=== PATIENT | male | born 2000 | race Caucasian/White ===

== ENCOUNTER 2025-06-30 09:44 | Outpatient (AMB) | payer OTHER, SELFPAY ==
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
[2025-06-30 09:50] VITALS: BP 120/90; PULSE 66; RESP 18; TEMP 36.1; O2SAT 97; BMI 28.4
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
--- OUTSIDE RECORDS SUMMARY | 2025-06-30 10:16 | XMS_ITS | Clinical Summary ---
Author Organization [facility] Address [address] [place] [address] Phone Care Team Providers Care Translational Specialist Name Role Phone Kate Woodall MD Primary Care Provider [phone] Allergies Active Allergy Reactions Criticality Noted Date Comments Food 08/16/2017 Apples and citrus fruit Penicillins Active Problems Problem Noted Date Diagnosed Date Acne vulgaris 04/24/2018 Overview (08/18/2018): Rx [facility]. Rx included minocycline 2018: Takes minocin 75 mg bid and Clindamycin lotion 1 percent bid when acne flares. Assessment & Plan (08/18/2018 8:39 AM EDT): Continue clindamycin lotion. Minocin 75 bid if flares Low back pain 04/24/2018 Overview (08/18/2018): Saw Dr Easton 2017, referred to PT. xrays normal. No longer a problem. 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 Saw Dr Diaz 2016. Also mild cholinergic urticaria, shower or cold water now resolved. Hyperlipidemia 12/11/2015 Overview (08/18/2018): Seen [facility] 2016: LABWORK: done 07/21/16, fasting, with no intercurrent illness shows total cholesterol 213, HDL 37, LDL 126 which is similar to previous at 122. Triglycerides 148. SUMMARY: Tacos is a 15-year-old male with mildly elevated LDL cholesterol. He likely has a genetic predisposition to elevated LDL cholesterol. However, it is not in the familial hypercholesterolemia range and would not warrant pharmacologic intervention at this point. We will continue to work on reinforcing lifestyle modifications. Assessment & Plan (08/18/2018 8:42 AM EDT): Plan Lipid panel Discussed heart healthy diet Immunizations Immunization Administration Dates Next Due DTaP 09/29/2004, 2,02/04/2001,12/12,2000 HPV Vaccine 9 Valent 08/17/2015 HPV, Quadrivalent 03/22/2015,01/17/2015 Hep A, ped/adol 11/07/2011,10/25/2010 Hep B, ped/adol 04/17/2001,2000,2000 Hib (PRP-T) 11/06/2001, 1,2000,10/08 IPV 09/29/2004, 1,2000,10/08 Influenza, injectable, trivalent 011,09/28/2008,10/28/2007,09/24 Influenza, injectable,tr valent, preservative free, pediatric 12/24/2012 MMR 09/29/2004,11/06/2001 Meningococcal Conj (Menactra) MCV4P 02/04/2017,1 01/08/2011 Pneumococcal, Unspecified 08/15/2001,,2000,10/08 Tdap 11/07/2011 Varicella 10/14/2009,08/05/2001 Family History Medical History Relation Name Comments Hyperlipidemia Maternal Grandfather Hyperlipidemia Maternal Grandmother Asthma Mother Asthma Sister Relation Name Status Comments Maternal Grandfather Maternal Grandmother Mother Alive migraines Sister Social History Tobacco Use Types Packs/Day Years Used Date Smoking Tobacco: Never Alcohol Use Standard Drinks/Week Comments No 0 (1 standard drink = 0.6 oz pur e alcohol) Hunger/Food Answer Date Recorded No 08/13/2020 Stable Housing Answer Date Recorded No 08/13/2020 Transportation Concerns Answer Date Rec orded No 08/13/2020 Hazards in Home Answer Date Recorded No 09/30/2020 Financing Utilities Answer Date Recorde d No 09/30/2020 Safety at Home Answer Date Recorded No 09/30/2020 Outside Support Answer Date Recorded No 09/30/2020 Understanding Health Concerns Answer Da te Recorded No 09/30/2020 Financing Health Concerns Answer Date R ecorded No 09/30/2020 Missing School or Work Answer Date Omer rded No 09/30/2020 Sex and Gender Information Value Date Recorded Sex Assigned at Not on file Legal Sex Male 4:07 AM EST Gender Identity Not on file Sexual Orientation Not on file Last Filed Vital Signs Vital Sign Reading Time Taken Comments Blood Pressure 126/76 08/18/2018 8:14 AM EDT Pulse 69 04/19/2016 12:00 AM EDT Temperature 36.5 C (97.7 F) 02/03/2018 3:16 PM EDT Respiratory Rate - - Oxygen Saturation 98% 04/19/2016 12:00 AM EDT Inhaled Oxygen Concentration - - Weight 69.9 kg (154 lb 3.2 oz) 08/18/2018 8:14 A M EDT Height 168.9 cm (5' 6.5 ) 08/18/2018 8:14 AM EDT Body Mass Index 24.52 08/18/2018 8:14 AM EDT Plan of Treatment Health Maintenance Due Date Last Done Comments DTaP,Tdap,and Td Vaccines (7 - Td or Tdap) 11/07/2021 11/07/2011, 09/29/2004, 02/10/2002, Additional history exists COVID-19 Vaccine ( season) 2024 Influenza Vaccines (#1) 2025 12/24/19 13, 11/07/2011, 09/28/2008, Additional history exists Hepatitis B Vaccines Completed 04/17/2001, 2000, 2000 Pneumococcal Vaccine Aged Out 08/15/2001, 08/15/2001, 02/04/2001, Additional history exists No longer eligible based on patient's age to complete this topic HIB Vaccines Completed 11/06/2001, 01/17, 2000, Additional history exists IPV Vaccines Completed 09/29/2004, 07/20, 2000, Additional history exists MMR Vaccines Completed 09/29/2004, 11/06/2001 Varicella Vaccines Completed 10/14/2009, 08/05/2001 Hepatitis A Vaccines Completed 11/07/2011, 10/25/20 10 HPV Vaccines Completed 08/17/2015, 05/0 03/2015, 01/17/2015 Meningococcal Vaccine Completed 02/04/2017, 011 Men B Vaccine Aged Out No longer radha christian based on patient's age to complete this topic Insurance [facility] NON PCC Care Teams Translational Specialist Relationship Specialty Start Date End Date Kate Woodall MD [address] [address] PCP - General 01/08/17
--- OUTSIDE RECORDS SUMMARY | 2025-06-30 10:16 | XMS_ITS | Clinical Summary ---
Author Organization [facility] Address [address] [place] [address] Care Team Providers Care Physical Therapy Aides Teacher Name Role Phone Patient, Has No Pcp Or Ref Primary Care Provider Unavailable Allergies No known active allergies Medications No known medications Social History Tobacco Use Types Packs/Day Years Used Date Smoking Tobacco: Never Assessed Sex and Gender Information Value Date Recorded Sex Assigned at Male 02/12/2025 2:37 PM EDT Legal Sex Male 2:11 PM EDT Gender Identity Male 02/12/2025 2:37 PM EDT Sexual Orientation Not on file Last Filed Vital Signs Vital Sign Reading Time Taken Comments Blood Pressure 148/84 02/12/2025 10:11 PM EDT Pulse 75 02/12/2025 10:11 PM EDT Temperature 36.6 C (97.8 F) 02/12/2025 10:11 PM EDT Respiratory Rate 16 02/12/2025 10:11 PM EDT Oxygen Saturation 98% 02/12/2025 10:11 PM EDT Inhaled Oxygen Concentration - - Weight - - Height - - Body Mass Index - - Plan of Treatment Health Maintenance Due Date Last Done Comments HIV Screening 2000 Hepatitis C Screening 2000 HPV Vaccines (3 - Male 2-dos e series) 07/20/2015 03/22/2015, 01/17/2015 COVID-19 Vaccine (2023-2 5 season) 2024 Alcohol/Substance Use Screening 11/18/2024 Depression Screening and Follow-Up 11/18/2024 Social Drivers of Health Patsy ual Screening 11/18/2024 Influenza Vaccine (#1) 2025 9, 12/24/2012, 11/07/2011, Additional history exists DTaP,Tdap,and Td Vaccines (8 - Td or Tdap) 05/04/2029 05/04/2019, 11/07/2011, 09/29/2004, Additional history exists RSV Vaccine (60+ years old a nd patients) (1 - 1-dose 75+ series) 2075 Pneumococcal Vaccine: Pediat danelle (0-5 Years) and At-Risk Patients (6-50 Years) Completed 08/15/2001, 02/04/2001, 2000, Additional history exists Varicella Vaccines Completed 06/05/2019, 0 05/04/2019, 10/14/2009, Additional history exists Hepatitis B Vaccines Completed 11/05/2019, 06/05/2019, 05/04/2019, Additional history exists Insurance on file Care Teams Physical Therapy Aides Teacher Relationship Specialty Start Date End Date Patient, Has No Pcp Or Ref DO NOT EDIT THIS RECORD VIA PROVIDER ON THE FLY PCP - General Vice President Of Talent Management 02/12/25
--- OUTSIDE RECORDS SUMMARY | 2025-06-30 10:16 | XMS_ITS | Clinical Summary ---
Author Organization [address] Address [address] [place] [address] Phone Care Team Providers Care Plastic Worker Name Role Phone No, Pcp (Do Not Change Name) Primary Care Provid er Unavailable Allergies No known active allergies Social History Tobacco Use Types Packs/Day Years Used Date Smoking Tobacco: Never Assessed Sex and Gender Information Value Date Recorded Sex Assigned at Not on file Legal Sex Male 6:35 PM EDT Gender Identity Not on file Sexual Orientation Not on file Last Filed Vital Signs Vital Sign Reading Time Taken Comments Blood Pressure 149/78 03/25/2025 7:11 PM EDT Pulse 73 03/25/2025 7:11 PM EDT Temperature 36.7 C (98 F) 03/25/2025 7:11 PM EDT Respiratory Rate 18 03/25/2025 7:11 PM EDT Oxygen Saturation 98% 03/25/2025 7:11 PM EDT Inhaled Oxygen Concentration - - Weight 78 kg (172 lb) 03/25/2025 7:11 PM EDT Height 170.2 cm (5' 7 ) 03/25/2025 7:11 PM EDT Body Mass Index 26.94 03/25/2025 7:11 PM EDT Plan of Treatment Health Maintenance Due Date Last Done Comments HIV screening 2013 Hepatitis C screening 2018 Covid-19 vaccine series ( season) 2024 12/27/2020 Influenza vaccine 07/19/2025 09/08/2019, , 11/07/2011, Additional history exists DTaP/TDaP Vaccines (8 - Td or Tdap) 05/04/2029 05/04/2019, 11/07/2011, 09/29/2004, Additional history exists Tetanus adult (Td q 10,TDAP once) 05/06/2029 05/06/2019, 05/04/2019, 11/07/2011, Additional history exists RSV Immunization (1 - 1-dose 75+ series) 2075 Pneumococcal Vaccine (2 - 49 years) Aged Out 08/15/2001, 02/04/2001, 2000, Additional history exists No longer eligible based on patient's age to complete this topic HIB Vaccines Completed 11/06/2001, 01/17, 2000, Additional history exists MMR Vaccines Completed 09/29/2004, 11/06/2001 Hepatitis A Vaccines Completed 11/07/2011, 10/25/20 10 HPV vaccine series Completed 08/17/2015, 0 03/22/2015, 01/17/2015 Meningococcal Vaccine Completed 05/04/2019 , 02/04/2017, 11/07/2011 IPV Vaccines Completed 06/05/2019, 09/18, 08/15/2001, Additional history exists Varicella Vaccines Completed 06/05/2019, 0 05/04/2019, 10/14/2009, Additional history exists Hepatitis B vaccine series Completed 11/05, 06/05/2019, 05/04/2019, Additional history exists Rotavirus Vaccines Aged Out No longer eligible based on patient's age to complete this [place] [address] [place] [id number] [employer] Care Teams Plastic Worker Relationship Specialty Start Date End Date No, Pcp (Do Not Change Name) PCP - General 03/25/25
--- OUTSIDE RECORDS SUMMARY | 2025-06-30 10:16 | XMS_ITS ---
Author Name [facility] Organization Unknown Encounters Encounter Type Encounter Reason Primary Diagnosis Location Date Emergency Sprain of ankle, unspecified site Sprain of ankle, unspecified site [facility] 03/25/2025 Care Team Organization Name Specialty Phone Email Start Date End Da korin [facility] 06/2025
== END 2025-06-30 10:36 | disposition home or self-care (01) ==
DX: Z76.89 Persons encountering health services in other specified circumstances (principal); S93.401D Sprain of unspecified ligament of right ankle, subsequent encounter; F41.9 Anxiety disorder, unspecified

== ENCOUNTER → 2025-06-30 09:44 | Outpatient (BNVA) | payer OTHER, SELFPAY | DX: Z76.89 Persons encountering health services in other specified circumstances (principal); S93.401D Sprain of unspecified ligament of right ankle, subsequent encounter; F41.9 Anxiety disorder, unspecified | CPT/HCPCS: 96127; 99202 ==

== ENCOUNTER 2025-08-23 09:59 | Outpatient (REF) | payer OTHER, SELFPAY ==
--- OUTSIDE RECORDS SUMMARY | 2025-08-23 11:45 | XMS_ITS | Clinical Summary ---
Author Organization [facility] Address [address] [place] [id number] Phone Care Team Providers Care Grade Tamper Name Role Phone Kate Woodall MD Primary Care Provider [phone] Allergies Active Allergy Reactions Criticality Noted Date Comments Food 08/16/2017 Apples and citrus fruit Penicillins Active Problems Problem Noted Date Diagnosed Date Acne vulgaris 04/24/2018 Overview (08/18/2018): Rx [facility]. Rx included minocycline 2018: Takes minocin [...] 11/07/2021 11/07/2011, 09/29/2004, 02/10/2002, Additional history exists Influenza Vaccines (#1) 2025 12/24/19 13, 11/07/2011, 09/28/2008, Additional history exists COVID-19 Vaccine () 07/19/2025 Hepatitis B Vaccines Completed 04/17/2001, 2000, 2000 [...] patient's age to complete this topic Insurance [facility] NON PCC Care Teams Grade Tamper Relationship Specialty Start Date End Date Kate Woodall MD [address] [id number] PCP - General 01/08/17
--- OUTSIDE RECORDS SUMMARY | 2025-08-23 11:45 | XMS_ITS | Encounter Summary ---
Author Organization [facility] Address [address] [place] [address] Phone Care Team Providers Care Maintenance Mechanic Supervisor Name Role Phone Kate Woodall MD Primary Care Provider [phone] Encounter Details Date Type Department Care Team ([facility] st Contact Info) Description 04/05/2017 Conversion Encounter [address] [address] Kate Woodall MD [address] [place] [phone] Social History Tobacco Use Types Packs/Day Years Used Date Smoking Tobacco: Never Assessed Sex and Gender Information Value Date Recorded Sex Assigned at Not on file Legal Sex Male 4:07 AM EST Gender Identity Not on file Sexual Orientation Not on file documented as of this encounter Plan of Treatment Not on file documented as of this encounter Visit Diagnoses Not on filedocumented in this encounter Care Teams Maintenance Mechanic Supervisor Relationship Specialty Start Date End Date Kate Woodall MD [address] [place] [id number] PCP - General 01/08/17 documented as of this encounter
--- OUTSIDE RECORDS SUMMARY | 2025-08-23 11:45 | XMS_ITS | Encounter Summary ---
Author Organization [facility] Address [address] [place] [address] Phone Care Team Providers Care Scanning Clerk Name Role Phone Kate Woodall MD Primary Care Provider [phone] Encounter Details Date Type Department Care Team ([facility] st Contact Info) Description 04/05/2017 Conversion Encounter [address] [address] Kate Woodall MD [address] [place] [phone] Social History Tobacco Use Types Packs/Day Years [...] on filedocumented in this encounter Care Teams Scanning Clerk Relationship Specialty Start Date End Date Kate Woodall MD [address] [place] [phone] PCP - General 01/08/17 documented as of this encounter
--- OUTSIDE RECORDS SUMMARY | 2025-08-23 11:45 | XMS_ITS | Clinical Summary ---
Author Organization [facility] Address [address] [place] [address] Care Team Providers Care Search Analyst Name Role Phone Ref, Has No Pcp Or Primary Care Provider Unavail able Allergies No known active allergies Medications No [...] Male 2-dos e series) 07/20/2015 03/22/2015, 01/17/2015 Alcohol/Substance Use Screening 11/18/2024 Depression Screening and Follow-Up 11/18/2024 Social Drivers of Health Patsy ual Screening 11/18/2024 COVID-19 Vaccine ( - 2023-2 5 season) 2025 Influenza Vaccine (#1) 2025 9, 12/24/2012, 11/07/2011, [...] history exists Insurance on file Care Teams Search Analyst Relationship Specialty Start Date End Date Ref, Has No Pcp Or DO NOT EDIT THIS RECORD VIA PROVIDER ON THE FLY PCP - [employer] 02/12/25
--- OUTSIDE RECORDS SUMMARY | 2025-08-23 11:45 | XMS_ITS | Clinical Summary ---
Author Organization [address] Address [address] [place] [address] Phone Care Team Providers Care Railroader Name Role Phone No, Pcp (Do Not [...] HIV screening 2013 Hepatitis C screening 2018 Influenza vaccine 06/18/2025 09/08/2019, , 11/07/2011, Additional history exists Covid-19 vaccine series ( season) 2025 12/27/2020 DTaP/TDaP Vaccines (8 - Td or Tdap) [...] Completed 11/05, 06/05/2019, 05/04/2019, Additional history exists Meningococcal B Vaccine Aged Out No l onger eligible based on patient's age to complete this topic Rotavirus Vaccines Aged Out No longer eligible based on patient's age to complete this topic Insurance [employer] Care Teams Railroader Relationship Specialty Start Date End Date No, Pcp (Do Not Change Name) PCP - General 03/25/25
[2025-08-23 13:32] LABS: MANUAL DIFF FLAG NO
[2025-08-23 13:40] LABS: Appearance Urine Clear; Glucose Urine UA Negative (Negative); PH 5.5 (5.0-9.0); Specific Gravity - Urine 1.020 (1.005-1.025)
[2025-08-23 13:48] LABS: Hematocrit 44.6 % (42.0-52.0); Hemoglobin 15.4 g/dl (14.0-18.0); Imm Gran Abs Auto 0.02 X10*3/uL (0.00-0.03); Imm Gran Pct Auto 0.3 % (0.0-0.4); Lymphocytes Absolute Auto 2.4 X10*3/uL (1.2-4.9); Mean Corpuscular HGB Conc 34.5 g/dl (31.0-36.0); Mean Corpuscular Hemoglobin 31.4 pg (27.0-33.0); Mean Corpuscular Volume 90.8 fL (80.0-98.0); NRBC Abs Auto 0.000 X10*3/uL (0.0-0.012); NRBC Pct Auto 0.0 /100WBC (0.0-0.2); Platelet Count 134 X10*3/uL (160-400); Red Blood Count 4.91 X10*6/uL (4.60-5.80); White Blood Count 6.0 X10*3/uL (4.8-10.8)
[2025-08-23 14:04] LABS: Alanine Aminotransferase 51 U/L (0-40); Albumin Level 4.8 g/dL (3.5-5.0); Alkaline Phosphatase 61 U/L (39-117); Anion Gap 10 (12-20); Aspartate Amino Transferase 81 U/L (5-37); Blood Urea Nitrogen 14 mg/dL (9-16); Calcium 9.5 mg/dL (8.4-10.2); Carbon Dioxide 24 mmol/L (22-29); Chloride 110 mmol/L (96-108); Cholesterol 247 mg/dL (<200); Estimated Glomerular Filt Rate > 60; HDL Cholesterol 32 mg/dL (>40); Potassium 3.7 mmol/L (3.3-5.1); Sodium 140 mmol/L (135-145); Total Protein 7.6 g/dL (6.5-8.0); Triglycerides 381 mg/dL (<150)
== END 2025-08-23 10:00 | disposition home or self-care (01) ==
LOC: HO.HMGCLDS 09:59
DX: Z00.00 Encounter for general adult medical examination without abnormal findings (principal); Z13.1 Encounter for screening for diabetes mellitus; Z13.6 Encounter for screening for cardiovascular disorders
CPT/HCPCS: 36415; 80053; 80061; 81003; 82306; 83036; 84443; 85025

== ENCOUNTER 2025-08-26 10:11 | Outpatient (AMB) | payer OTHER, SELFPAY ==
[2025-08-26 10:17] VITALS: BP 132/74; PULSE 75; RESP 18; TEMP 36.3; O2SAT 97
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
== END 2025-08-26 10:54 | disposition home or self-care (01) ==
LOC: HO.HMCH 10:11
DX: Z00.00 Encounter for general adult medical examination without abnormal findings (principal); S93.401D Sprain of unspecified ligament of right ankle, subsequent encounter; F41.9 Anxiety disorder, unspecified; E78.2 Mixed hyperlipidemia; R74.8 Abnormal levels of other serum enzymes

== ENCOUNTER 2025-11-08 08:31 | Outpatient (REF) | payer OTHER, SELFPAY ==
--- NOTE | ~2025-11-08 | US_ITS ---
CLINICAL HISTORY: R74.8 - Abnormal levels of other serum enzymes --- Additional Notes or Special Instructions: Elevated liver enzymes, history of alcohol high amount use US abdomen limited Comparison: None provided Findings: The visualized pancreas, aorta, and inferior vena cava are unremarkable. The liver is lower normal in size, right lobe length is 13 cm. Normal in echogenicity, no discrete lesion is visualized in the imaged liver. No bile duct dilatation. Common duct 4 mm diameter. Normal gallbladder. Negative sonographic Cardenas sign. Main portal vein shows antegrade flow. Right kidney normal, 10 cm in length. No free fluid in the right upper quadrant of the abdomen. Impression: Normal exam. This document has been electronically signed by: Radha Aguirre MD on 11/09/2025 14:08:07
--- OUTSIDE RECORDS SUMMARY | 2025-11-08 08:47 | XMS_ITS | Clinical Summary ---
Author Organization [facility] Address [address] [place] [id number] Phone Care Team Providers Care Service Representative Name Role Phone Kate Woodall MD Primary Care Provider [phone] Allergies Active Allergy Reactions Criticality Noted Date Comments Food 08/16/2017 Apples and citrus fruit Penicillins Active Problems Problem Noted Date Diagnosed Date Acne vulgaris 04/24/2018 Overview (08/18/2018): Rx [facility]. Rx included minocycline 2018: Takes minocin [...] patient's age to complete this topic Insurance [facility] NON PCC Care Teams Service Representative Relationship Specialty Start Date End Date Kate Woodall MD [address] [id number] PCP - General 01/08/17
--- OUTSIDE RECORDS SUMMARY | 2025-11-08 08:47 | XMS_ITS | Encounter Summary ---
Author Organization [facility] Address [address] [place] [address] Phone Care Team Providers Care Paper Mill Manager Name Role Phone Kate Woodall MD Primary Care Provider [phone] Encounter Details Date Type Department Care Team ([facility] st Contact Info) Description 04/05/2017 Conversion Encounter [address] [address] Kate Woodall MD [address] [place] [id number] Social History Tobacco Use Types Packs/Day Years [...] on filedocumented in this encounter Care Teams Paper Mill Manager Relationship Specialty Start Date End Date Kate Woodall MD [address] [place] [id number] PCP - General 01/08/17 documented as of this encounter
--- OUTSIDE RECORDS SUMMARY | 2025-11-08 08:47 | XMS_ITS | Clinical Summary ---
Author Organization [address] Address [address] [place] [address] Phone Care Team Providers Care Home Care And Home Health Aides Teacher Name Role Phone No, Pcp (Do Not [...] patient's age to complete this topic Insurance [facility] Care Teams Home Care And Home Health Aides Teacher Relationship Specialty Start Date End Date No, Pcp (Do Not Change Name) PCP - General 03/25/25
--- OUTSIDE RECORDS SUMMARY | 2025-11-08 08:47 | XMS_ITS | Clinical Summary ---
Author Organization [facility] Address [address] [place] [address] Care Team Providers Care Backup Engineer Name Role Phone Ref, Hasnopcp Primary Care Provider Unavailabl e Allergies No known active allergies Medications No [...] 2025 9, 12/24/2012, 11/07/2011, Additional history exists COVID-19 Vaccine ( - 2024-2 6 season) 2025 DTaP,Tdap,and Td Vaccines (8 - Td or Tdap) 05/04/2029 05/04/2019, 11/07/2011, 09/29/2004, Additional history exists Pneumococcal Vaccine: Pediat danelle (0-5 Years) and At-Risk Patients (6-50 Years) Completed 08/15/2001, 02/04/2001, 2000, Additional history exists Varicella Vaccines Completed 06/05/2019, 0 05/04/2019, 10/14/2009, Additional history exists Hepatitis B Vaccines Completed 11/05/2019, 06/05/2019, 05/04/2019, Additional history exists Insurance on file Care Teams Backup Engineer Relationship Specialty Start Date End Date Ref, Bartolo DO NOT EDIT THIS RECORD VIA PROVIDER ON THE FLY PCP - General Carburetor Rebuilder 02/12/25
--- OUTSIDE RECORDS SUMMARY | 2025-11-08 08:47 | XMS_ITS | Encounter Summary ---
Author Organization [facility] Address [address] [place] [address] Phone Care Team Providers Care Magazine Feeder Name Role Phone Kate Woodall MD Primary Care Provider [phone] Encounter Details Date Type Department Care Team ([facility] st Contact Info) Description 04/05/2017 Conversion Encounter [address] [address] Kate Woodall MD [address] [place] [phone] Social History Tobacco Use Types Packs/Day Years [...] on filedocumented in this encounter Care Teams Magazine Feeder Relationship Specialty Start Date End Date Kate Woodall MD [address] [place] [id number] PCP - General 01/08/17 documented as of this encounter
== END 2025-11-08 08:32 | disposition home or self-care (01) ==
LOC: HO.HMGCX 08:31
DX: R74.8 Abnormal levels of other serum enzymes (principal); E78.5 Hyperlipidemia, unspecified
CPT/HCPCS: 76705

== ENCOUNTER → 2025-11-08 08:32 | Outpatient (BNV) | payer OTHER, SELFPAY | PROVIDERS: Visit Provider Radiology Diagnostic Radiology | DX: R74.8 Abnormal levels of other serum enzymes (principal) | CPT/HCPCS: 76705 ==